=== PATIENT | female | born 1960 | race Caucasian/White ===

== ENCOUNTER → 2018-05-16 | Outpatient (CLI) | payer SELFPAY ==
[~2018-05-16] MED LIST: ESCI20TA PO; ESTR0.5T4 PO; MESA1S PR; PROG100C6 PO
== END | disposition home or self-care (01) ==
LOC: OIH 14:47
PROVIDERS: ATTEND Internal Medicine Cardiovascular Disease
DX: Z13.6 Encounter for screening for cardiovascular disorders (principal)
CPT/HCPCS: 75571

== ENCOUNTER → 2018-05-27 | Outpatient (CLI) | payer BC | END | disposition home or self-care (01) | LOC: SHCH 11:27 | PROVIDERS: ATTEND Internal Medicine Cardiovascular Disease | DX: I34.0 Nonrheumatic mitral (valve) insufficiency (principal) | CPT/HCPCS: 93306 ==

== ENCOUNTER 2019-10-10 06:13 | Emergency (ER) | payer BC ==
[~2019-10-10 06:13] MED LIST changes: -ESTR0.5T4 PO; -MESA1S PR; -PROG100C6 PO
[2019-10-10] MEDS ORDERED: ONDANSETRON ODT 4 MG TAB ONE ×2 (06:33→06:41)
[2019-10-10 06:54] LABS: BASOPHILS % (AUTO) 0.5 % (0.0-5.0); EOSINOPHILS % (AUTO) 2.2 % (0.0-8.0); HEMATOCRIT 35.1 % (36-48); LYMPHOCYTES % (AUTO) 21.5 % (21.0-51.0); MEAN CORPUSCULAR HEMOGLOBIN 30.9 pg (27.0-33.0); MEAN CORPUSCULAR HGB CONC 33.9 g/dL (32.0-36.0); MEAN CORPUSCULAR VOLUME 91.2 fL (79-99); MONOCYTES % (AUTO) 6.6 % (3.0-13.0); PLATELET COUNT (AUTO) 198 K/uL (130-400); RED BLOOD CELL COUNT(AUTO) 3.85 MIL/uL (4.00-5.50); RED CELL DISTRIBUTION WIDTH 11.8 % (11.0-15.5); WHITE BLOOD COUNT (AUTO) 4.1 K/uL (4.8-10.8)
[2019-10-10 07:04] LABS: CREATININE 0.8 mg/dL (0.5-1.5); POTASSIUM 3.5 mmol/L (3.5-5.1)
[2019-10-10] MEDS ORDERED: SODIUM CHLORIDE 0.9% 1000ML 1,000 ML IV ONE (07:04)
[2019-10-10 07:05] LABS: BILIRUBIN,URINE Negative (NEGATIVE); COLOR,URINE Yellow (YELLOW); GLUCOSE, URINE (UA) Negative (NEGATIVE); KETONES,URINE Trace mg/dL (NEGATIVE); LEUKOCYTE ESTERASE ,URINE Negative (NEGATIVE); NITRATE,URINE Negative (NEGATIVE); OCCULT BLOOD,URINE Negative (NEGATIVE); PH,URINE 7.5 (5.0-8.0); PROTEIN,URINE Negative (NEGATIVE); UROBILINOGEN,URINE 0.2 mg/dL (0.2-1.0)
[2019-10-10 07:08] LABS: APPEARANCE,URINE CLEAR (CLEAR)
[2019-10-10 07:10] LABS: ALBUMIN 3.7 g/dL (3.5-5.0); BILIRUBIN,TOTAL 0.4 mg/dL (0.2-1.0); TOTAL PROTEIN, SERUM 7.3 g/dL (6.0-8.3)
[2019-10-10 07:17] LABS: RBC,URINE 0-1 /HPF (0-1)
[2019-10-10 07:19] LABS: SQUAMOUS EPITHELIAL CELL,UR Few /HPF (0-2)
[2019-10-10 07:20] LABS: BACTERIA,URINE Few /HPF (None Seen)
[2019-10-10 07:21] LABS: AMORPHOUS SEDIMENT,UR Few /LPF (None Seen)
[2019-10-10] MEDS ORDERED: KETOROLAC TROMETHAMINE 15MG/ML ONE (07:36)
[2019-10-10] MEDS ORDERED: TAMSULOSIN HCL 0.4 MG CAP.ER.24H ONE (08:19)
== END 2019-10-10 09:55 | disposition home or self-care (01) ==
LOC: EDH 06:13
DX: N20.1 Calculus of ureter (principal); N13.4 Hydroureter; R11.2 Nausea with vomiting, unspecified; F32.9 Major depressive disorder, single episode, unspecified; Z98.890 Other specified postprocedural states
CPT/HCPCS: 36415; 74176; 80053; 81001; 82150; 82550; 83690; 84484; 85025; 87804 ×2; 93005; 96361; 96374; 99285; J1885; J7030